=== PATIENT | male | born 1980 | race Caucasian/White ===

== ENCOUNTER 2016-05-23 13:02 | Emergency (ER) | payer SELFPAY ==
[2016-05-23] MEDS ORDERED: Sodium Chloride 0.9% 1,000 ML PRIMARY IV ONE (13:21)
[2016-05-23] MEDS ORDERED: NORMAL SALINE 10 ML SYRINGE FLUSH IVP PRN (13:21)
[2016-05-23] MEDS ORDERED: Metoclopramide Inj 10 MG/2 ML VIAL IVP ONE (13:21)
[2016-05-23] MEDS ORDERED: KETOROLAC 30 MG/1 ML VIAL IVP ONE (13:21)
[2016-05-23] MEDS ORDERED: diphenhydrAMINE 50 MG/1 ML VIAL IVP ONE (13:21)
[2016-05-23 13:30] LABS: BASOPHILS # (AUTO) 0.05 10*3/UL; BASOPHILS % (AUTO) 0.3 % (0-1); EOSINOPHILS % (AUTO) 1.4 % (0-8); HEMATOCRIT 44.9 % (42.0-52.0); IMM GRAN % (AUTO) 0.4 % (0-5); IMM GRAN# (AUTO) 0.07 10*3/UL; LYMPHOCYTES # (AUTO) 3.35 10*3/uL; LYMPHOCYTES % (AUTO) 21.1 % (10-50); MEAN CORPUSCULAR HEMOGLOBIN 29.3 PG (27-31); MEAN CORPUSCULAR HGB CONC 35.6 g/dL (33-37); MEAN PLATELET VOLUME 10.1 FL (7.4-12.2); MONOCYTES # (AUTO) 1.13 10*3/UL (0.3-0.8); MONOCYTES % (AUTO) 7.1 % (5-15); NEUTROPHILS # (AUTO) 11.06 10*3/UL; NEUTROPHILS % (AUTO) 69.7 % (50-80); RED BLOOD COUNT 5.47 10^6/uL (4.70-6.10); WHITE BLOOD COUNT 15.89 10^3/uL (4.8-10.8)
[2016-05-23 13:33] LABS: PLATELET MORPHOLOGY COMMENT NORMAL MORPHOLOGY (NORM)
[2016-05-23 13:39] LABS: ASPARTATE AMINO TRANSFERASE 35 IU/L (21-57); BILIRUBIN,TOTAL 0.5 mg/dL (0.3-1.2); BLOOD UREA NITROGEN 10 mg/dL (7-22); CALCIUM 9.5 mg/dL (8.7-10.7); CHLORIDE 108 meq/L (98-112); CREATININE 0.5 mg/dL (0.70-1.50); EST GLOMERULAR FILTRATION > 60 (>60 ml/min/1.73m(2)); GLUCOSE 101 mg/dL (78-110); POTASSIUM 4.4 meq/L (3.8-5.2); SODIUM 144 meq/L (135-145); TOTAL PROTEIN 8.2 g/dL (6.1-8.0)
[2016-05-23 13:47] VITALS: RESP 18
--- NOTE | 2016-05-23 14:16 | DI ---
CT HEAD SCAN WITHOUT IV CONTRAST, 05/23/2016 1:25 PM : Clinical History: Headache. Previous Exam: None at this facility. Scans are obtained from the foramen magnum to the vertex without IV contrast. The 4th, 3rd, and lateral ventricles are of normal size, shape, position, and contour. There are no abnormal areas of increased or decreased density. There is no intracranial hemorrhage. Bone window evaluation is normal. The paranasal sinuses are normal. READING: Normal non contrast CT head scan.
[2016-05-23 15:54] LABS: APPEARANCE, CSF CLEAR (CLEAR); COLOR, CSF COLORLESS (COLOR)
[2016-05-23 15:55] LABS: ADD CSF CULTURE YES
[2016-05-23 16:04] LABS: GLUCOSE, CSF 57 mg/dL (50.0-80.0); TOTAL PROTEIN, CSF 53 mg/dL (15.0-45.0)
--- NOTE | 2016-05-23 17:01 | PDOC ---
Headache HPI - General Chief Complaint: Headache Stated Complaint: MIGRAINE HEADACHE STARTING TODAY Date Seen by Provider: 05/23/16 Time Seen by Provider: 13:10 Source: POSITIVE: Patient Exam Limitations: POSITIVE: No limitations Nurse's Notes Reviewed & Considered: Yes - History of Present Illness Initial Comments: The patient is a 36-year-old male. He is brought to the emergency room by his . A shunt states that her approximately 3-4 hours [employer] DESIGN[employer] he was standing at work and developed a fairly abrupt onset of headache. His headache is located in the temporal areas bilaterally. He denies any history of recent head trauma. No associated nausea or vomiting. He does complain of photophobia and phonophobia. He states he has never had a headache this severe, although he does state that he did have one headache in the past which she states was diagnosed as a migraine headache. Patient states he has chronic foot pain due to previous fractures and also neuropathy. He states he does take Percocet on a daily basis for his foot pain, as well as chronic back pain, but he has not had any of this medication for 2 days since he states his [id number] inadvertently took his Percocet with her back to her home after a visit. History of hypertension for which she takes lisinopril/hydrochlorothiazide. No motor or sensory deficits. No incoordination or speech deficits. Body Location Affected: REPORTS: Head Timing: REPORTS: Abrupt Duration: 4-6 hours Severity: Severe Quality: REPORTS: "Pain", Throbbing, Tenderness (Scalp tenderness) Context: DENIES: CO Exposure, Tick Bite, Insect Bite, Recent Head Injury, Other Associated Symptoms: REPORTS: Sensitivity to Light. DENIES: Fever, Chills, Sweating, Problems with Vision, Visual Disturb Preceding, [place] Preceding, Typical of Prior Aura(s), Nausea, Vomiting, Neck Pain, Stiffness, Speech Problems, Weakness, Trouble Walking, Tingling, Numbness, Dizziness, Lightheadedness, Other Exacerbated by: REPORTS: Light, Noise Any Prior Injuries Related to Current Complaint?: No - Patient Home Medications Home Medications: Home Medications Ibuprofen [Advil Migraine] 200 mg PO PRN #30 04/14/12 Hydrocodone Bit/Acetaminophen [Hydrocodon-Acetaminophn 10-325] 1 each PO QID PRN #100 04/30/12 JPM - Lisinopril Tab 10 mg PO DAILY tab 07/04/14 Meloxicam 1 - 2 tab PO DAILY PRN #60 tab 02/20/15 - Patient Allergies Allergies/Adverse Reactions: Allergies Allergy/AdvReac Type Severity Reaction Status Date / Time Penicillins AdvReac Intermediate HEADACHE Verified 05/23/16 13:24 Past Medical History - heen HEENT History: Denies History Cardiovascular History: Hypertension Respiratory History: Other (please comment) Additional Respiratory History: smoker Gastrointestinal History: Denies History Genitourinary History: Denies History Endocrine History: Denies History Prosthesis or Implant: No Additional Musculoskeletal History: left foot fracture with ORIF; Rt foot fracture, LOW SPINAL COMPRESSION FX (UNSURE WHICH LEVEL), " MY PELVIS FROM MY SPINE 2X YEARS AGO". Neurological History: Migraines Blood Disorders: Denies History Psychiatric History: Other (please comment) Additional Psychiatric History: depressive symptoms after laid off from work History of Sexually Transmitted Diseases: No Cancer History: Denies History In Past Year Been Physically Harmed or Verbally Threatened: No History of MDRO: Unknown History of Other Communicable Diseases: No Tobacco Use: Current Every Day Smoker Alcohol Use: Rarely Substance Use Type: None Previous Surgical History: Yes Anesthesia Reactions: No Malignant Hyperthermia: No Significant Family History: No pertinent family hx Past Medical History Reviewed: Reviewed - No Changes ROS - Limitations ROS Limitations: No Limitations Constitution: REPORTS: Denies Symptoms Cardiovascular: REPORTS: Denies Cardiac Symptoms Respiratory: REPORTS: Denies Resp Symptoms Neurological: REPORTS: Headache Gastrointestinal: REPORTS: Denies GI Symptoms Endocrine: REPORTS: Denies Symptoms Musculoskeletal: REPORTS: Denies MS Symptoms Genitourinary: REPORTS: Denies Symptoms Eyes: REPORTS: Denies Symptoms ENT: REPORTS: Denies Symptoms Skin: REPORTS: Denies Skin Symptoms Lympathic: REPORTS: Denies Lympathic Symptoms Immunologic: POSITIVE: Denies Symptoms Psychiatric: POSITIVE: Denies Psych Symptoms Headache Exam - General Appearance General Appearance: POSITIVE: Alert, Cooperative, No Evidence of Trauma, Anxious , Moderate Distress - HEENT Head / Face: POSITIVE: Atraumatic, Normal Inspection, No Facial Swelling, Tenderness (Scalp is tender on firm palpation and compression) Eyes: POSITIVE: Inspection Normal, PERRL, EOM's Intact, Eyelids Uninjured, Conjunctivae Uninjured, No Nystagmus, No Globe Trauma, Sclera Normal, Normal Fundoscopic Exam, Ant. Chamber Nml Inspect., Posterior Segments Normal, No Papilledema Ears: POSITIVE: Ears Normal Inspection, TM Normal Inspection, Auricle Normal, External Canal Normal Nose: POSITIVE: Inspection Normal, No Apparent Trauma, Nares Normal, No CSF Leak Oropharynx: POSITIVE: External Inspection Nml, Pharynx Inspect. Nml, Airway Intact, Voice Normal, Moist Mucous Membranes, No Oral Injury, Lips Normal, Gums Normal, No Drooling, No Thrush, Normal Gag Reflex Dental: POSITIVE: No Dental Injury - Pupil Size Pupil Size: 4 mm: Bilateral (PERRLA) - Neck Neck: POSITIVE: Normal Inspection, Supple - Respiratory / CVS Respiratory / CVS: POSITIVE: Chest Non-Tender, No Respiratory Distress, Heart Sounds Normal, Regular Rate/Rhythm, Breath Sounds Normal Peripheral Pulses: Radial (R): 2+, Radial (L): 2+ - Abdomen Abdomen: Soft: (All Quadrants), Normal Bowel Sounds: (All Quadrants), Denies Tenderness: (All Quadrants), No Splenomegaly: (All Quadrants), No Hepatomegaly: (All Quadrants), No Guarding: (All Quadrants), No Rebound: (All Quadrants), No Palpable Pulse: (All Quadrants), No Palpabale Mass: (All Quadrants), No Distention: (All Quadrants), No Rigidity: (All Quadrants) - Skin Skin: POSITIVE: Intact, Normal Palpation - Extremities Extremity: Non-Tender: (All Extremities), Normal ROM: (All Extremities), Normal Inspection: (All Extremities) - Neuro / Psych Higher Functions: POSITIVE: Alert, Oriented x3, Normal Speech, Mood Appropriate , Affect Appropriate Cranial Nerves: POSITIVE: Normal As Tested, No Evidence of Acute CVA Cerebellar: POSITIVE: Normal As Tested Sensorimotor: POSITIVE: No Motor Deficits, No Sensory Deficits, Reflexes Normal Images - Head Head: 1 - Area of headache 2 - Area of scalp tenderness and headache Procedure - Lumbar Puncture Risks, Benefits, & Alternatives Discussed: Yes Time of Treatment: 14:45 Lumbar Puncture Technique: POSITIVE: Lying, Sterile Technique, L3-4 Lumbar Puncture Color: POSITIVE: Colorless Lumbar Puncture Lab Results Reviewed: Yes Procedure Note:: After informed consent, lumbar puncture was performed by Dr. Jerome Tillman under fluoroscopic guidance in radiology. Please refer to his procedure note. Headache Progress - Results Reviewed by me Xrays/CTs/US Reviewed by me: Yes Discussed with Radiologist: Yes Radiology Findings: CT scan of head normal Lab Results Reviewed: Yes (spinal fluid normal with no abnormal cells or cell count) Lab Results:: Laboratory Results 05/23/16 05/23/16 Range/Units 13:23 15:22 WBC 15.89 H (4.8-10.8) 10^3/uL RBC 5.47 (4.70-6.10) 10^6/uL Hgb 16.0 (14.0-18.0) g/dL Hct 44.9 (42.0-52.0) % MCV 82.1 (80-90) FL MCH 29.3 (27-31) PG MCHC 35.6 (33-37) g/dL RDW Std Deviation 38.6 L (39-50) fL RDW Coeff of Joel 13.0 (11.5-14.5) % Plt Count 279 (140-350) 10*3/uL MPV 10.1 (7.4-12.2) FL Immature Gran % (Auto) 0.4 (0-5) % Neut % (Auto) 69.7 (50-80) % Lymph % (Auto) 21.1 (10-50) % [place] % (Auto) 7.1 (5-15) % Eos % (Auto) 1.4 (0-8) % Baso % (Auto) 0.3 (0-1) % Immature Gran # (Auto) 0.07 10*3/UL Neut # (Auto) 11.06 10*3/UL Lymph # (Auto) 3.35 10*3/uL [place] # (Auto) 1.13 H (0.3-0.8) 10*3/UL Eos # (Auto) 0.23 10*3/UL Baso # (Auto) 0.05 10*3/UL WBC Morphology Comment Normal morphology (NORM) Plt Morphology Comment Normal morphology (NORM) RBC Morph Comment Normal morphology (NORM) Sodium 144 (135-145) meq/L Potassium 4.4 (3.8-5.2) meq/L Chloride 108 (98-112) meq/L Carbon Dioxide 25 (23-33) meq/L Anion Gap 11 (5-20) BUN 10 (7-22) mg/dL Creatinine 0.5 L (0.70-1.50) mg/dL Estimated GFR > 60 (>60 ml/min/1.73m(2)) BUN/Creatinine Ratio 20.00 (6-20) Glucose 101 (78-110) mg/dL Calculated Osmolality 296.0 H (267-292) mOsm/kg Calcium 9.5 (8.7-10.7) mg/dL Total Bilirubin 0.5 (0.3-1.2) mg/dL AST 35 (21-57) IU/L ALT 69 (21-72) IU/L Alkaline Phosphatase 74 (38-126) IU/L Total Protein 8.2 H (6.1-8.0) g/dL Albumin 4.4 (3.5-4.8) g/dL Globulin 3.8 (2.50-4.10) g/dL Albumin/Globulin Ratio 1.10 L (1.3-2.0) mg/g CSF Volume 8ml ML CSF Appearance Clear (CLEAR) CSF Color Colorless (COLOR) CSF WBC 0.004 (0-0.010) 10^3/uL CSF RBC 0.002 (0-0.010) 10^6/uL CSF Glucose 57 (50.0-80.0) mg/dL CSF Total Protein 53 H (15.0-45.0) mg/dL - Patient's Progress Pain Medication Addressed: POSITIVE: Yes (Patient was given a liter of normal saline IV along with 10 mg of Reglan, 50 mg of diphenhydramine and 30 mg of Toradol IV. Patient had fair relief of his headache afterward.) School/Work Release Addressed: POSITIVE: Yes (Work excuse for today given) Re-Examine Time:: 15:45 Re-Examine Comment: Patient's headache is markedly improved on discharge. Laboratory results and CT scan results discussed with patient and his . will drive patient home. Status: POSITIVE: Improved, Re-Examined, Pain Relieved - Consult Counseled: POSITIVE: Patient, Family, RE: Lab Results, RE: Radiology Results, RE : DX, RE: Need for F/U Patient Care Time - Estimated PCT Patient Care Time (In Minutes): 62 Vital Signs - Recent Vital Signs Vital Signs: Vital Signs (Last 8 hours) Pulse Resp BP Pulse Ox 05/23/16 13:02 96 18 138/111 98 - VS Reviewed Vital Signs Reviewed: Yes Discharge Clinical Impression: Headache, Migraine Discharge Disposition: Discharged to Home Condition: Stable Patient Instructions Given at Discharge: Migraine Headache (ED) Additional Instructions: The CT scan of your head and your spinal tap were both normal. I believe he will probably having a migraine headache and probably also a muscle contraction headache. Rest. I would avoid narcotics as sometimes headaches can occur in people who stop taking narcotics after they have been on them for a long time, as is apparently your case. Advil or Tylenol for discomfort. Rest for the rest of the day. Follow-up with your primary care provider. Return here anytime if condition worsens in any way. Follow Up With: ZURI ASHRAF [Primary Care Provider] - (Instructions as above. Follow -up with your primary care provider. Return here anytime if condition worsens.)
--- NOTE | 2016-05-24 13:04 | DI ---
XR FLUORO GUIDE/LOCAL/NDL/CATH,05/23/2016 2:55 PM: Clinical History: Headache. Rule out subarachnoid hemorrhage. Previous Exam: None at this facility. Procedure: Risks, benefits and alternatives were explained to the patient and informed written consen t obtained. The patient was placed prone on the fluoroscopy table and the lower back prepped and draped in usual sterile fashion. Under fluoroscopic guidance, a 22-gauge spinal needle was advanced into the thecal sac and samples of cervical spinal fluid obtained. The first sample was completely clear. The second through fourth demonstrated some blood grossly within the fluid. The patient tolerated the procedure well and was sent back to the emergency room in good condition. Findings: Real-time fluoroscopy demonstrated a spinal needle in good position at the L4/5 level. There is also a single static image demonstrating the needle in good position. Impression: Successful fluoroscopically guided lumbar puncture.
== END 2016-05-23 16:19 | disposition home or self-care (01) ==
LOC: ER 13:02
DX: G43.909 Migraine, unspecified, not intractable, without status migrainosus (principal); H53.143 Visual discomfort, bilateral
CPT/HCPCS: 70450; 77003; 80053; 82945; 84157; 85025; 87205; 89050; 96361; 96374; 96375; 99283 ×2; J1200; J1885; J2765; J7030

== ENCOUNTER 2017-06-07 20:10 | Inpatient (IN) ==
[2017-06-07] MEDS: NITROGLYCERIN 0.4 MG SL TAB (BOTTLE OF 3) SL ONE ×2 (20:10→20:15)
[2017-06-07] MEDS ORDERED: Sodium Chloride 0.9% 1,000 ML PRIMARY IV ONE (20:16)
[2017-06-07] MEDS ORDERED: MORPHINE SULFATE 4 MG/1 ML IVP ONE (20:16)
[2017-06-07] MEDS ORDERED: ONDANSETRON 4 MG/2 ML VIAL IVP ONE (20:16)
--- NOTE | 2017-06-07 20:21 | PDOC ---
Chest Pain HPI - General Chief Complaint: Chest Pain Stated Complaint: CHEST PAIN Date Seen by Provider: 06/07/17 Time Seen by Provider: 20:15 Source: Patient Exam Limitations: POSITIVE: No limitations Treatment Prior to Arrival: REPORTS: None Nurse's Notes Reviewed & Considered: Yes - History of Present Illness Initial Comments: This is a 37-year-old male who has sudden onset of chest pressure. Patient was at home sitting on the couch watching TV when he developed elevated heart rate and subsequent chest pressure. Symptoms began approximately 40 minutes prior to presentation here in the emergency room. He denies any radiation of the pain and no shortness of breath. He denies headache, no sore throat, no cough, no nausea vomiting or diarrhea, no diaphoresis, no rashes, no hematuria or dysuria. Patient is presently laid off from his job which is working for the [employer]. He is a smoker states that he smokes a half pack to a pack a day, however, his fingers or significantly nicotine stained and I suspect his level of tobacco ingestion is significantly higher. He states he has had an EKG in the past that showed an old myocardial infarction but is never seen a cardiology nurse practitioner. Patient takes medication for high blood pressure, and he relates that his blood pressure is labile. Body Location Affected: REPORTS: Chest Timing: REPORTS: Abrupt Duration: 1 hour Severity: Moderate Persistent/Worse since (date): 06/07/17 Persistent/Worse since (time): 19:30 Context: REPORTS: Rest Quality: REPORTS: Pressure Radiation: REPORTS: None Associated Symptoms: REPORTS: Palpitations Modifying Factors: improves with: None Reported Similar Symptoms Previously: No Recently seen/treated/hospitalized: No Any Prior Injuries Related to Current Complaint?: No - Patient Home Medications Home Medications: Home Medications Ibuprofen [Advil Migraine] 200 mg PO PRN #30 04/14/12 JPM - Lisinopril Tab 10 mg PO DAILY tab 07/04/14 Meloxicam 1 - 2 tab PO DAILY PRN #60 tab 02/20/15 oxyCODONE IR Tab [OxyIR Tab] 15 mg PO Q4H PRN 06/07/17 - Patient Allergies Allergies/Adverse Reactions: Allergies 3 Allergy/AdvReac Type Severity Reaction Status Date / Time Penicillins AdvReac Intermediate HEADACHE Verified 06/08/17 06:42 Past Medical History - heen HEENT History: Denies History Cardiovascular History: Hypertension Respiratory History: Other (please comment) Additional Respiratory History: smoker Gastrointestinal History: Denies History Genitourinary History: Denies History Endocrine History: Denies History Prosthesis or Implant: No Additional Musculoskeletal History: left foot fracture with ORIF; Rt foot fracture, LOW SPINAL COMPRESSION FX (UNSURE WHICH LEVEL), " MY PELVIS FROM MY SPINE 2X YEARS AGO". Neurological History: Migraines Blood Disorders: Denies History Psychiatric History: Other (please comment) Additional Psychiatric History: depressive symptoms after laid off from work History of Sexually Transmitted Diseases: No Cancer History: Denies History History of MDRO: Unknown History of Other Communicable Diseases: No Alcohol Use: Rarely In the Past 12 Months, Have Used or Abuse Any Substance: None Previous Surgical History: Yes Anesthesia Reactions: No Malignant Hyperthermia: No Significant Family History: No pertinent family hx ROS Constitution: REPORTS: Denies Symptoms Cardiovascular: REPORTS: Chest Pain, Blood Pressure Problem Respiratory: REPORTS: Denies Resp Symptoms Neurological: REPORTS: Denies Neuro Symptoms Gastrointestinal: REPORTS: Denies GI Symptoms Endocrine: REPORTS: Denies Symptoms Musculoskeletal: REPORTS: Denies MS Symptoms Genitourinary: REPORTS: Denies Symptoms Eyes: REPORTS: Denies Symptoms ENT: REPORTS: Denies Symptoms Skin: REPORTS: Denies Skin Symptoms Lympathic: REPORTS: Denies Lympathic Symptoms Immunologic: POSITIVE: Denies Symptoms Psychiatric: POSITIVE: Denies Psych Symptoms Chest Pain PE - General Appearance General Appearance: REPORTS: Alert, Cooperative, No Evidence of Trauma, Mild Distress - HEENT HEENT: POSITIVE: Head Inspection Nml, Eyes Inspection Nml, Ears Inspection Nml, Nose Inspection Nml, Oral/Dental Inspect. Nml, Pharynx Inspect. Nml, PERRL, EOMI - Neck Neck: REPORTS: Normal Inspection - Respiratory Respiratory: REPORTS: No Respiratory Distress, Breath Sounds Normal, Chest Non- Tender - Cardiovascular Cardiovascular: REPORTS: Regular Rate and Rhythm, Heart Sounds Normal, Strong Pulses, No Murmur, No Gallop, No Friction Rub, No JVD Peripheral Pulses: Radial (R): 4+ - Abdomen Abdomen: Soft: (All Quadrants), Normal Bowel Sounds: (All Quadrants), Denies Tenderness: (All Quadrants), No Splenomegaly: (All Quadrants), No Hepatomegaly: (All Quadrants), No Guarding: (All Quadrants), No Rebound: (All Quadrants), No Palpable Pulse: (All Quadrants), No Palpabale Mass: (All Quadrants), No Distention: (All Quadrants), No Rigidity: (All Quadrants) - Skin Skin: REPORTS: Intact, Normal For Race, Warm, Dry, No Rash - Extremities Extremity: Non-Tender: (All Extremities), Normal ROM: (All Extremities), Normal Inspection: (All Extremities), Pelvis Stable: (All Extremities) - Neurological / Psychological Neurological: POSITIVE: Affect Apporpriate, Oriented X3, Motor Normal, Sensation Normal Chest Pain Progress - Results Reviewed by me Xrays/CTs/US Reviewed by me: Yes Discussed with Radiologist: Yes Lab Results Reviewed by Me: Yes CBC and BMP: 06/07/17 20:10 06/08/17 05:30 EKG Interpreted/Reviewed By Me:: Yes (NSR) EKG Interpretation:: POSITIVE: Normal Sinus Rhythm - Patient's Progress Status: POSITIVE: Improved MDM / ED Course: Patient was evaluated, an IV started, blood drawn and sent to the lab for studies, EKG and radiographic examinations were obtained. Findings: CBC shows white count of 18.2. Comprehensive metabolic panel is unremarkable. Troponin, CK-MB, d-dimer are negative. Chest x-ray, per my interpretation shows cardiac enlargement without congestive heart failure. CT scan shows no acute cardiopulmonary decompensation. Assessment: Chest pain Plan: Admission, IV antibiotics, repeat serial cardiac enzymes and EKGs. - Consult Consulting MD will see pt:: POSITIVE: [place] Admit Counseled: POSITIVE: Patient, RE: Lab Results, RE: Radiology Results, RE: DX Patient Care Time - Estimated PCT Patient Care Time (In Minutes): 60 Vital Signs - Recent Vital Signs Vital Signs: Vital Signs (Last 8 hours) Temp Pulse Pulse Resp BP Pulse Ox 06/08/17 06:49 97.5 F 87 19 155/66 92 06/08/17 05:00 96.8 F 90 18 172/88 93 06/08/17 04:17 94 06/08/17 03:00 90 - VS Reviewed Vital Signs Reviewed: Yes Discharge Clinical Impression: Chest pain Discharge Disposition: Admit to Observation Condition: Stable
[2017-06-07 20:28] LABS: BASOPHILS # (AUTO) 0.07 10*3/UL; BASOPHILS % (AUTO) 0.4 % (0-1); EOSINOPHILS # (AUTO) 0.52 10*3/UL; EOSINOPHILS % (AUTO) 2.9 % (0-8); Hematocrit [HCT] 48.1 % (42.0-52.0); Hemoglobin [HGB] 16.4 g/dL (14.0-18.0); LYMPHOCYTES # (AUTO) 4.78 10*3/uL; MEAN CORPUSCULAR HEMOGLOBIN 29.1 PG (27-31); MEAN CORPUSCULAR HGB CONC 34.1 g/dL (33-37); MEAN CORPUSCULAR VOLUME 85.3 FL (80-90); MEAN PLATELET VOLUME 10.5 FL (7.4-12.2); MONOCYTES # (AUTO) 1.41 10*3/UL (0.3-0.8); MONOCYTES % (AUTO) 7.8 % (5-15); NEUTROPHILS # (AUTO) 11.35 10*3/UL; NEUTROPHILS % (AUTO) 62.3 % (50-80); RED BLOOD COUNT 5.64 10^6/uL (4.70-6.10)
[2017-06-07 20:32] LABS: PLATELET MORPHOLOGY COMMENT NORMAL MORPHOLOGY (NORM); RBC MORPHOLOGY COMMENT NORMAL MORPHOLOGY (NORM); WBC MORPHOLOGY COMMENT NORMAL MORPHOLOGY (NORM)
[2017-06-07] MEDS ORDERED: ACETAMINOPHEN 325 MG TABLET PO ONE (20:32)
[2017-06-07 20:41] LABS: BLOOD UREA NITROGEN 15 mg/dL (7-22); BUN/CREATININE RATIO 21.42 (6-20); SERUM ALBUMIN 4.5 g/dL (3.5-4.8)
[2017-06-07] MEDS ORDERED: AZITHROMYCIN 250 MG TABLET PO ONE (21:20)
[2017-06-07] MEDS ORDERED: DEXAMETHASONE PF 10 MG/1 ML VIAL IVP ONE (21:20)
[2017-06-07] MEDS ORDERED: KETOROLAC 15 MG/1 ML VIAL IVP ONE (21:49)
[2017-06-07] MEDS ORDERED: cefTRIAXone Inj 2 GM in Sodium Chloride 0.9% 100 ML IV ONE (22:01)
[2017-06-07] MEDS ORDERED: NICOTINE 21 MG /DAY PATCH TRANSDERM ONE (22:04)
--- NOTE | 2017-06-07 22:20 | DI ---
EXAM: XR Chest, 1 View CLINICAL HISTORY: Chest pain TECHNIQUE: Frontal view of the chest. COMPARISON: No relevant prior studies available. FINDINGS: Lungs: No evidence for pulmonary consolidation. No effusion or pneumothorax identified. Left basilar atelectasis. Pleural space: See above. Heart: Cardiac silhouette is mildly enlarged. Central pulmonary venous prominence and bronchovascular crowding. These findings likely accentuated by low lung volume. Mediastinum: Unremarkable. Bones/joints: Unremarkable. IMPRESSION: Possible mild cardiomegaly and central venous prominence, likely accentuated by low lung volume.
[2017-06-07] MEDS ORDERED: LIDOCAINE W/ SODIUM BICARB 0.5 ML SYR SUBD PRN (23:14)
[2017-06-07] MEDS ORDERED: NORMAL SALINE 10 ML SYRINGE FLUSH IVP PRN (23:14)
[2017-06-07] MEDS ORDERED: ASPIRIN 81 MG (BABY) CHEWABLE TABLET PO ONE (23:14)
[2017-06-07] MEDS ORDERED: CALCIUM CARBONATE 500 MG (TUMS) CHEWABLE TABLET PO PRN (23:14)
[2017-06-07] MEDS ORDERED: KETOROLAC 15 MG/1 ML VIAL IVP PRN (23:17)
--- NOTE | 2017-06-07 23:23 | DI ---
EXAM: CT Angiography Chest Without and With Intravenous Contrast CLINICAL HISTORY: Chest pain TECHNIQUE: Axial computed tomographic angiography images of the chest without and with intravenous contrast using pulmonary embolism protocol. MIP reconstructed images were created and reviewed. Coronal and sagittal reformatted images were created and reviewed. COMPARISON: No relevant prior studies available. FINDINGS: Pulmonary arteries: Exam is limited due to suboptimal pulmonary arterial contrast at time of imaging. No evidence for central or occlusive pulmonary embolus. Multiple foci of hypodensity within the segmental and subsegmental pulmonary trunk branches likely related to artifact. Aorta: No acute findings regarding the thoracic aorta. No thoracic aortic aneurysm. Lungs: 5 mm subpleural right upper lobe lung nodule. Calcified granuloma within the left upper lobe. 3 mm opacity within the left upper lobe on image 39. Small foci of subpleural scarring and atelectasis noted bilaterally. No evidence for consolidation. No visualized effusion. Azygos lobe incidentally noted. Pleural space: Unremarkable. No significant effusion. No pneumothorax. Heart: Unremarkable. No cardiomegaly. No significant pericardial effusion. No evidence of RV dysfunction. Bones/joints: No acute fracture. No dislocation. Mild degenerative disc changes. Soft tissues: Unremarkable. Lymph nodes: Unremarkable. No enlarged lymph nodes. Liver: Hepatic steatosis. IMPRESSION: 1. No evidence for central or occlusive pulmonary embolus. Limited contrast bolus and artifact limits evaluation of the segmental and subsegmental branches. 2. Calcified granuloma in the left upper lobe. Noncalcified small nodularities in the right upper lobe and left upper lobe may also be related to inflammation or scarring though nonspecific. If there is risk for malignancy, consider twelve-month follow-up imaging. 3. Hepatic steatosis.
[2017-06-08] MEDS ORDERED: LISINOPRIL 20 MG TABLET PO ONE (00:30)
[2017-06-08] MEDS ORDERED: Metoprolol TARTRATE Tab 25 MG TAB PO ONE (00:31)
[2017-06-08] MEDS ORDERED: LORazepam 2 MG/1 ML VIAL IM ONE (00:31)
[2017-06-08] MEDS: Sodium Chloride 0.9% 1,000 ML PRIMARY IV SCH ×2 (01:02→10:13)
[2017-06-08] MEDS: oxyCODONE IR Tab 15 MG TAB PO PRN ×3 (01:27→09:00)
[2017-06-08 06:12] LABS: BLOOD UREA NITROGEN 18 mg/dL (7-22); BUN/CREATININE RATIO 25.71 (6-20); CHOL/HDL RATIO 4.21 RATIO (0-4.0); SERUM ALBUMIN 4.1 g/dL (3.5-4.8); SERUM CHOLESTEROL 156 mg/dL (120-200)
[2017-06-08] MEDS ORDERED: LISINOPRIL 10 MG TABLET PO SCH (09:00)
[2017-06-08 11:13] LABS: AMPHETAMINE SCREEN NEGATIVE (NEG); CANNABINOID SCREEN,URINE NEGATIVE (NEG); COCAINE SCREEN NEGATIVE (NEG); METHADONE URINE SCREEN NEGATIVE (NEG); METHAMPHETAMINES SCREEN,URINE NEGATIVE (NEG); OPIATE SCREEN,URINE NEGATIVE (NEG); URINE SAMPLE TYPE CLEAN CATCH URINE; URINE SPECIFIC GRAVITY - MAN 1.027
[2017-06-08 11:19] VITALS: BP 166/79; RESP 18; TEMP 97.6; O2SAT 94
--- NOTE | 2017-06-08 11:31 | EKG ---
[address] [address] Measurements Intervals [place] Rate: 106 P: 47 FL: 122 QRS: 42 QRSD: 105 T: 33 QT: 321 QTc: 383 Interpretive Statements SINUS TACHYCARDIA NONSPECIFIC T-WAVE ABNORMALITY ABNORMAL RHYTHM ECG INTERPRETATION BASED ON A DEFAULT AGE OF 40 YEARS No previous ECG available for comparison Electronically Signed On 06-09-17 09:49:59 MST by Lul Borden MD [email or web address]
[2017-06-08 11:42] LABS: HEMOGLOBIN A1C 5.75 % (4.2-6.0)
--- NOTE | 2017-06-08 12:05 | PDOC ---
HPI - History of Present Illness Date of Service: 06/08/17 Time of Service: 11:30 Chief Complaint: Chest pain History of Present Illness: This is a 37-year-old male that came in with a complaint of chest pain. He states that it was in the lower substernal region on the left side, and felt like a squeezing. He stated it felt like someone had reached in and grabbed his heart and squeezed it. He states that the pain stretched a little laterally. He denied any shortness of breath with the pain. He denied any nausea or vomiting with the pain. He states that he does get heartburn but he states this does not feel like heartburn to him. He denied any diaphoresis. He states that the pain started about an hour after eating last night. He stated he did not want to come to the hospital but his and his children were concerned about the chest pain. He states he has a positive family history of heart disease apparently with episodes of heart attacks in his uncles on his mother's side. He has hypertension and he smokes tobacco. He does not know about cholesterol status and does not have diabetes to his knowledge. Thus far, heart enzymes have been negative, EKG is negative for any acute signs of coronary artery disease, and a CT scan of the chest was negative for pulmonary emboli. He states that he had a prior heart attack, and apparently this was diagnosed on an old EKG finding. He states that he was on an EKG for about an hour, and that these results were sent to a plywood stock grader although he never visited a plywood stock grader formally, he also has never had a heart catheterization. He does not recall any stress testing. Past Medical History Medical History: 1. Patient states that he had a heart attack in the past. 2. Chronic foot pain from a prior surgery in which he thinks the screws are misplaced.? Chronic hardware pain. According to his , the patient is in the process of trying to really work this up as they just got placed on title [address] and he had lost his insurance prior to these workups being completed. 3. Tobacco abuse. 4. Fatty liver disease, which patient attributed to long-term use of Vicodin. 5. 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 Foot surgery Pertinent Family History: Significant for coronary artery disease per the patient with multiple heart attacks and uncles on his mother's side of the family. Past Social History: Patient is and is been with his and significant other of over 20 years. Has 3 biologic children with her and are described as healthy. He smokes tobacco, states he cannot tolerate alcohol due to heartburn symptoms. 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 Tobacco Use: Current Every Day Smoker Do you dip or chew tobacco: No In the Past 12 Months, Have Used or Abuse Any of the Following Substance: None Alcohol Use: None Medication / Allergies Home Medications: Home Medications Medication Instructions Recorded Confirmed Type Ibuprofen [Advil Migraine] 200 mg PO PRN #30 04/14/12 06/07/17 History JPM - Lisinopril Tab 10 mg PO DAILY tab 07/04/14 06/07/17 History Meloxicam 1 - 2 tab PO DAILY PRN #60 tab 02/20/15 06/07/17 History oxyCODONE IR Tab [OxyIR Tab] 15 mg PO Q4H PRN 06/07/17 06/07/17 History Allergies/Adverse Reactions: Allergies 3 Allergy/AdvReac Type Severity Reaction Status Date / Time Penicillins AdvReac Intermediate HEADACHE Verified 06/08/17 06:42 Review of Systems - Constitutional Constitutional: REPORTS: Other (Denies fevers or cough) - Respiratory Respiratory: REPORTS: Negative System Review - Cardiovascular Cardiovascular: REPORTS: Negative System Review - Gastrointestinal Gastrointestinal / Abdominal: REPORTS: Negative System Review - Genitourinary Genitourinary: REPORTS: Negative System Review - Musculoskeletal Musculoskeletal: REPORTS: Other (In addition to his chronic hip pain and foot pain, he states that he has 2 herniated disks) - Neurological Neurologic: REPORTS: Negative System Review Exam - Vitals Vital Signs: Vital Signs Temperature 97.6 F Temperature Source Temporal Artery Scan Pulse Rate [Telemetry] 84 Pulse Rate [Pulse Oximeter] 99 Pulse Rate 102 Respiratory Rate 18 Blood Pressure [Right Arm] 166/79 Blood Pressure 153/92 Pulse Ox 94 Oxygen Delivery Method Room Air Height 6 ft 2 in Weight 300 lb - General General Appearance: No Acute Distress, Cooperative Additional General Exam Details: Patient was somewhat belligerent, anxious and agitated sitting in the bed, and cursed at me during the interview. - Head Head Exam: Normal Inspection, Normocephalic, Atraumatic - Eye Eye Exam: POSITIVE: No Scleral Icterus - ENT ENT Exam: POSITIVE: Mucous Membranes Moist - Neck Neck Exam: Normal Inspection, No Tenderness, No Lymphadenopathy, No Thyromegaly - Respiratory Respiratory Exam: POSITIVE: Clear to Auscultation - Bilaterally, Breathing Non Labored - Cardiovascular Cardiovascular Exam: POSITIVE: RRR, No Murmur, No Clicks, No Gallops, No Rubs, No JVD Additional Cardiovascular Details: I palpated the patient's chest, on the lower portion of the chest for his pain was, he stated it felt somewhat like a squeezing that he had. He states it wasn 't a true reproducible pain similar to what he came in with last night. - GI/Abdominal GI/Abdominal Exam: POSITIVE: Normal Bowel Sounds, Non Tender, Non Distended, Soft - Rectal Rectal Exam: POSITIVE: Deferred - External Exam: POSITIVE: Deferred Exam: POSITIVE: Deferred - Extremities Extremities Exam: POSITIVE: No Clubbing Present, No Edema Present, No Cyanosis Present - Back Back Exam: POSITIVE: Normal Inspection, No CVA Tenderness - Neurological Neurological Exam: POSITIVE: Alert, Oriented x 3, No Facial Droop, Speech Intact / Clear, Moves All Extremities Equally - Psychiatric Psychiatric Exam: POSITIVE: Anxious, Agitated Results - Labs CBC and BMP: 06/07/17 20:10 06/08/17 05:30 Additional Lab Results: Laboratory Results 06/07/17 06/07/17 06/07/17 Range/Units 20:10 20:10 20:10 WBC 18.19 H (4.8-10.8) 10^3/uL RBC 5.64 (4.70-6.10) 10^6/uL Hgb 16.4 (14.0-18.0) g/dL Hct 48.1 (42.0-52.0) % MCV 85.3 (80-90) FL MCH 29.1 (27-31) PG MCHC 34.1 (33-37) g/dL RDW Std Deviation 42.5 (39-50) fL RDW Coeff of Joel 13.8 (11.5-14.5) % Plt Count 285 (140-350) 10*3/uL MPV 10.5 (7.4-12.2) FL Immature Gran % (Auto) 0.3 (0-5) % Neut % (Auto) 62.3 (50-80) % Lymph % (Auto) 26.3 (10-50) % [place] % (Auto) 7.8 (5-15) % Eos % (Auto) 2.9 (0-8) % Baso % (Auto) 0.4 (0-1) % Immature Gran # (Auto) 0.06 10*3/UL Neut # (Auto) 11.35 10*3/UL Lymph # (Auto) 4.78 10*3/uL [place] # (Auto) 1.41 H (0.3-0.8) 10*3/UL Eos # (Auto) 0.52 10*3/UL Baso # (Auto) 0.07 10*3/UL WBC Morphology Comment Normal morphology (NORM) Plt Morphology Comment Normal morphology (NORM) RBC Morph Comment Normal morphology (NORM) PT (9.7-11.4) secs INR (0.00-5.90) N/A D-Dimer (0.00-0.59) mg/L Sodium 146 H (135-145) meq/L Potassium 4.4 (3.8-5.2) meq/L Chloride 107 (98-112) meq/L Carbon Dioxide 25 (23-33) meq/L Anion Gap 14 (5-20) BUN 15 (7-22) mg/dL Creatinine 0.7 (0.70-1.50) mg/dL Estimated GFR > 60 (>60 ml/min/1.73m(2)) BUN/Creatinine Ratio 21.42 H (6-20) Glucose 90 (78-110) mg/dL Mean Blood Glucose mg/dL Hemoglobin A1c (4.2-6.0) % Calculated Osmolality 302.0 H (267-292) mOsm/kg Calcium 9.6 (8.7-10.7) mg/dL Magnesium 1.9 (1.6-2.4) mg/dL Total Bilirubin 0.4 (0.3-1.2) mg/dL AST 41 (21-57) IU/L ALT 76 H (21-72) IU/L Alkaline Phosphatase 71 (38-126) IU/L CK-MB (CK-2) 0.26 (0.00-5.00) NG/ML Troponin I < 0.012 (< 0.040) ng/mL C-Reactive Protein 1.8 H (0.0-0.9) mg/dL NT-Pro-B Natriuret Pep 11.1 (0-125) PG/ML Total Protein 8.1 H (6.1-8.0) g/dL Albumin 4.5 (3.5-4.8) g/dL Globulin 3.6 (2.50-4.10) g/dL Albumin/Globulin Ratio 1.20 L (1.3-2.0) mg/g Triglycerides (44-200) mg/dL Cholesterol (120-200) mg/dL LDL Cholesterol, Calc mg/dL VLDL Cholesterol (0-40) mg/dL HDL Cholesterol (40-150) mg/dL Cholesterol/HDL Ratio (0-4.0) RATIO TSH (0.2700-4.2000) uIU/mL Ur Collection Type U Specif Grav (Refrac) Urine Opiates Screen (NEG) Ur Buprenorphine (NEG) Ur Oxycodone Screen (NEG) Urine Methadone Screen (NEG) Ur Propoxyphene Screen (NEG) Barbiturate Screen (NEG) U Tricyclic Antidepress (NEG) Phencyclidine Screen (NEG) Amphetamines Screen (NEG) U Methamphetamines Scrn (NEG) Benzodiazepines Screen (NEG) Cocaine Screen (NEG) U Marijuana (THC) Screen (NEG) 06/07/17 06/07/17 06/07/17 Range/Units 20:10 20:10 20:16 WBC (4.8-10.8) 10^3/uL RBC (4.70-6.10) 10^6/uL Hgb (14.0-18.0) g/dL Hct (42.0-52.0) % MCV (80-90) FL MCH (27-31) PG MCHC (33-37) g/dL RDW Std Deviation (39-50) fL RDW Coeff of Joel (11.5-14.5) % Plt Count (140-350) 10*3/uL MPV (7.4-12.2) FL Immature Gran % (Auto) (0-5) % Neut % (Auto) (50-80) % Lymph % (Auto) (10-50) % [place] % (Auto) (5-15) % Eos % (Auto) (0-8) % Baso % (Auto) (0-1) % Immature Gran # (Auto) 10*3/UL Neut # (Auto) 10*3/UL Lymph # (Auto) 10*3/uL [place] # (Auto) (0.3-0.8) 10*3/UL Eos # (Auto) 10*3/UL Baso # (Auto) 10*3/UL WBC Morphology Comment (NORM) Plt Morphology Comment (NORM) RBC Morph Comment (NORM) PT 10.0 (9.7-11.4) secs INR 0.94 (0.00-5.90) N/A D-Dimer 0.33 (0.00-0.59) mg/L Sodium (135-145) meq/L Potassium (3.8-5.2) meq/L Chloride (98-112) meq/L Carbon Dioxide (23-33) meq/L Anion Gap (5-20) BUN (7-22) mg/dL Creatinine (0.70-1.50) mg/dL Estimated GFR (>60 ml/min/1.73m(2)) BUN/Creatinine Ratio (6-20) Glucose (78-110) mg/dL Mean Blood Glucose mg/dL Hemoglobin A1c (4.2-6.0) % Calculated Osmolality (267-292) mOsm/kg Calcium (8.7-10.7) mg/dL Magnesium (1.6-2.4) mg/dL Total Bilirubin (0.3-1.2) mg/dL AST (21-57) IU/L ALT (21-72) IU/L Alkaline Phosphatase (38-126) IU/L CK-MB (CK-2) (0.00-5.00) NG/ML Troponin I (< 0.040) ng/mL C-Reactive Protein (0.0-0.9) mg/dL NT-Pro-B Natriuret Pep (0-125) PG/ML Total Protein (6.1-8.0) g/dL Albumin (3.5-4.8) g/dL Globulin (2.50-4.10) g/dL Albumin/Globulin Ratio (1.3-2.0) mg/g Triglycerides (44-200) mg/dL Cholesterol (120-200) mg/dL LDL Cholesterol, Calc mg/dL VLDL Cholesterol (0-40) mg/dL HDL Cholesterol (40-150) mg/dL Cholesterol/HDL Ratio (0-4.0) RATIO TSH 2.29 (0.2700-4.2000) uIU/mL Ur Collection Type U Specif Grav (Refrac) Urine Opiates Screen (NEG) Ur Buprenorphine (NEG) Ur Oxycodone Screen (NEG) Urine Methadone Screen (NEG) Ur Propoxyphene Screen (NEG) Barbiturate Screen (NEG) U Tricyclic Antidepress (NEG) Phencyclidine Screen (NEG) Amphetamines Screen (NEG) U Methamphetamines Scrn (NEG) Benzodiazepines Screen (NEG) Cocaine Screen (NEG) U Marijuana (THC) Screen (NEG) 06/08/17 06/08/17 06/08/17 Range/Units 02:15 05:30 05:30 WBC (4.8-10.8) 10^3/uL RBC (4.70-6.10) 10^6/uL Hgb (14.0-18.0) g/dL Hct (42.0-52.0) % MCV (80-90) FL MCH (27-31) PG MCHC (33-37) g/dL RDW Std Deviation (39-50) fL RDW Coeff of Joel (11.5-14.5) % Plt Count (140-350) 10*3/uL MPV (7.4-12.2) FL Immature Gran % (Auto) (0-5) % Neut % (Auto) (50-80) % Lymph % (Auto) (10-50) % [place] % (Auto) (5-15) % Eos % (Auto) (0-8) % Baso % (Auto) (0-1) % Immature Gran # (Auto) 10*3/UL Neut # (Auto) 10*3/UL Lymph # (Auto) 10*3/uL [place] # (Auto) (0.3-0.8) 10*3/UL Eos # (Auto) 10*3/UL Baso # (Auto) 10*3/UL WBC Morphology Comment (NORM) Plt Morphology Comment (NORM) RBC Morph Comment (NORM) PT (9.7-11.4) secs INR (0.00-5.90) N/A D-Dimer 0.29 (0.00-0.59) mg/L Sodium 145 (135-145) meq/L Potassium 5.0 (3.8-5.2) meq/L Chloride 112 (98-112) meq/L Carbon Dioxide 20 L (23-33) meq/L Anion Gap 13 (5-20) BUN 18 (7-22) mg/dL Creatinine 0.7 (0.70-1.50) mg/dL Estimated GFR > 60 (>60 ml/min/1.73m(2)) BUN/Creatinine Ratio 25.71 H (6-20) Glucose 201 H (78-110) mg/dL Mean Blood Glucose mg/dL Hemoglobin A1c (4.2-6.0) % Calculated Osmolality 307.0 H (267-292) mOsm/kg Calcium 10.0 (8.7-10.7) mg/dL Magnesium (1.6-2.4) mg/dL Total Bilirubin 0.2 L (0.3-1.2) mg/dL AST 49 (21-57) IU/L ALT 64 (21-72) IU/L Alkaline Phosphatase 75 (38-126) IU/L CK-MB (CK-2) (0.00-5.00) NG/ML Troponin I < 0.012 (< 0.040) ng/mL C-Reactive Protein (0.0-0.9) mg/dL NT-Pro-B Natriuret Pep (0-125) PG/ML Total Protein 7.4 (6.1-8.0) g/dL Albumin 4.1 (3.5-4.8) g/dL Globulin 3.3 (2.50-4.10) g/dL Albumin/Globulin Ratio 1.20 L (1.3-2.0) mg/g Triglycerides 173 (44-200) mg/dL Cholesterol 156 (120-200) mg/dL LDL Cholesterol, Calc 84.400 mg/dL VLDL Cholesterol 34 (0-40) mg/dL HDL Cholesterol 37 L (40-150) mg/dL Cholesterol/HDL Ratio 4.21 H (0-4.0) RATIO TSH (0.2700-4.2000) uIU/mL Ur Collection Type U Specif Grav (Refrac) Urine Opiates Screen (NEG) Ur Buprenorphine (NEG) Ur Oxycodone Screen (NEG) Urine Methadone Screen (NEG) Ur Propoxyphene Screen (NEG) Barbiturate Screen (NEG) U Tricyclic Antidepress (NEG) Phencyclidine Screen (NEG) Amphetamines Screen (NEG) U Methamphetamines Scrn (NEG) Benzodiazepines Screen (NEG) Cocaine Screen (NEG) U Marijuana (THC) Screen (NEG) 06/08/17 06/08/17 Range/Units 05:30 10:09 WBC (4.8-10.8) 10^3/uL RBC (4.70-6.10) 10^6/uL Hgb (14.0-18.0) g/dL Hct (42.0-52.0) % MCV (80-90) FL MCH (27-31) PG MCHC (33-37) g/dL RDW Std Deviation (39-50) fL RDW Coeff of Joel (11.5-14.5) % Plt Count (140-350) 10*3/uL MPV (7.4-12.2) FL Immature Gran % (Auto) (0-5) % Neut % (Auto) (50-80) % Lymph % (Auto) (10-50) % [place] % (Auto) (5-15) % Eos % (Auto) (0-8) % Baso % (Auto) (0-1) % Immature Gran # (Auto) 10*3/UL Neut # (Auto) 10*3/UL Lymph # (Auto) 10*3/uL [place] # (Auto) (0.3-0.8) 10*3/UL Eos # (Auto) 10*3/UL Baso # (Auto) 10*3/UL WBC Morphology Comment (NORM) Plt Morphology Comment (NORM) RBC Morph Comment (NORM) PT (9.7-11.4) secs INR (0.00-5.90) N/A D-Dimer (0.00-0.59) mg/L Sodium (135-145) meq/L Potassium (3.8-5.2) meq/L Chloride (98-112) meq/L Carbon Dioxide (23-33) meq/L Anion Gap (5-20) BUN (7-22) mg/dL Creatinine (0.70-1.50) mg/dL Estimated GFR (>60 ml/min/1.73m(2)) BUN/Creatinine Ratio (6-20) Glucose (78-110) mg/dL Mean Blood Glucose 105.475 mg/dL Hemoglobin A1c 5.75 (4.2-6.0) % Calculated Osmolality (267-292) mOsm/kg Calcium (8.7-10.7) mg/dL Magnesium (1.6-2.4) mg/dL Total Bilirubin (0.3-1.2) mg/dL AST (21-57) IU/L ALT (21-72) IU/L Alkaline Phosphatase (38-126) IU/L CK-MB (CK-2) (0.00-5.00) NG/ML Troponin I (< 0.040) ng/mL C-Reactive Protein (0.0-0.9) mg/dL NT-Pro-B Natriuret Pep (0-125) PG/ML Total Protein (6.1-8.0) g/dL Albumin (3.5-4.8) g/dL Globulin (2.50-4.10) g/dL Albumin/Globulin Ratio (1.3-2.0) mg/g Triglycerides (44-200) mg/dL Cholesterol (120-200) mg/dL LDL Cholesterol, Calc mg/dL VLDL Cholesterol (0-40) mg/dL HDL Cholesterol (40-150) mg/dL Cholesterol/HDL Ratio (0-4.0) RATIO TSH (0.2700-4.2000) uIU/mL Ur Collection Type Clean catch urine U Specif Grav (Refrac) 1.027 Urine Opiates Screen Negative (NEG) Ur Buprenorphine Negative (NEG) Ur Oxycodone Screen Positive H (NEG) Urine Methadone Screen Negative (NEG) Ur Propoxyphene Screen Negative (NEG) Barbiturate Screen Negative (NEG) U Tricyclic Antidepress Negative (NEG) Phencyclidine Screen Negative (NEG) Amphetamines Screen Negative (NEG) U Methamphetamines Scrn Negative (NEG) Benzodiazepines Screen Positive H (NEG) Cocaine Screen Negative (NEG) U Marijuana (THC) Screen Negative (NEG) - EKG Data -: EKG Interpreted by Me Rate: Normal EKG Shows Normal: Sinus Rhythm - Imaging Status: Image Reviewed by Me (The chest x-ray, on my view appears negative for acute cardiopulmonary disease. The CT scan did not show any evidence of pneumonia. Radiologist felt that there were some nodules in the upper lung lobes. They were about 5 mm or less in size.) Assessment and Plan - Patient Problems (1) Chest pain Current Visit: Yes Status: Acute Code(s): R07.9 - Chest pain, unspecified (2) Tobacco abuse Current Visit: Yes Status: Acute Code(s): Z72.0 - Tobacco use (3) Chronic pain Current Visit: Yes Status: Chronic Code(s): G89.29 - Other chronic pain Qualifiers: Chronic pain type: chronic pain syndrome Qualified Code(s): G89.4 - Chronic pain syndrome (4) Hypertension Current Visit: Yes Status: Acute Code(s): I10 - Essential (primary) hypertension Qualifiers: Hypertension type: essential hypertension Qualified Code(s): I10 - Essential (primary) hypertension (5) Lung nodule < 6cm on CT Current Visit: Yes Status: Acute Code(s): R91.1 - Solitary pulmonary nodule - Assessment / Plan Additional Assessment/Plan Details: The recommendation of the patient would've been to proceed with an exercise treadmill stress test. When I went to confirm the second time that this would be okay with the patient, he became very belligerent with his language, stating "I fucking already said that I proceed with the test wire we going over this again?" He stated to me that he would rather go home and ultimately that is the plan that we felt would be best. His asked about reviewing the CT scan, but at 5 mm, I cannot even see the nodules so it's impossible for me to point out the on the imaging to her and I discussed that with her and the patient. I recommended repeat CT scan in one year, but ultimately I discussed quitting smoking as being the primary treatment for this. I also did make note of the elevated white blood cell count and elevated CRP, and this could certainly be inflammatory, but there is no evidence of bacterial pneumonia that would require antibiotics for therapy. Could be viral in etiology. They could be reactive to smoking as well. I wrote a prescription for a CT scan to be repeated, noncontrast, and May 2018. I also warned him that recurrent and repeat CT scans could cumulatively cause cancer in and of themselves, but that the current recommendations would recommend CT scans based on his smoking history and presence of nodules. In terms of his risk of heart disease or heart attack, I still think it's fairly low given his age, but with his family history, his tobacco abuse, and hypertension, I wrote a prescription for an exercise treadmill stress test told him to discuss it with his provider and do it on an outpatient basis at a minimum. I discussed whether or not this could be heartburn, but he had no interest in doing a proton pump inhibitor trial. We did do a hemoglobin A1c, the patient does not have diabetes. Off as gallbladder disease can also mimic chest pains, I recommended consideration for a gallbladder ultrasound, and I also recommended that it could require further workup. Given this discussion, the fact that I certainly don't believe that we need to deal with belligerent behavior and patient's cursing us, and my suspicion overall being low for coronary artery disease, I think this workup can be safely done as an outpatient. The patient made very clear that he would prefer to just do this on a different day, and that he would prefer to discuss this with with his provider. As I feel like there is no other way that we can accommodate this patient's request other than the discharge him and have him follow with his primary provider, that is the plan we will go with. Given his belligerence and cursing behavior and his anxiousness and agitation, I'm also worried that this could escalate further as it was cleared during the visit with the patient that he was not calming down her de-escalating in terms of his behavior.
--- NOTE | 2017-06-08 12:24 | DCSUMMARY ---
Hospitalization Summary Admit Date: 06/08/2017 Discharge Date: 06/08/17 Primary Diagnosis:: chest pain, atypical Hospital Course: This is a 37-year-old male who came in earlier on a same-day admission and discharge. Please see his history and physical exam from earlier today for further details of plan. Assessment and Plan: 1. As per discharge assessments noted 2. Disposition: Patient is discharged home. 3. Condition on discharge, stable and improved. No evidence of acute myocardial infarction or pulmonary emboli. 4. Diet: regular diet 5. Activities: I recommended the patient quit smoking 6. Follow-Up: 1. Primary care provider as soon as possible in [place]. 2. 7. Medications at the Time of Discharge: Home Medications Medication Instructions Recorded Confirmed Type Ibuprofen [Advil Migraine] 200 mg PO PRN #30 04/14/12 06/07/17 History JPM - Lisinopril Tab 10 mg PO DAILY tab 07/04/14 06/07/17 History Meloxicam 1 - 2 tab PO DAILY PRN #60 tab 02/20/15 06/07/17 History oxyCODONE IR Tab [OxyIR Tab] 15 mg PO Q4H PRN 06/07/17 06/07/17 History 8. Time, care, counseling and coordination of care for this discharge is greater than 30 minutes. Exam - Vitals Vital Signs: Vital Signs Temperature 97.6 F Temperature Source Temporal Artery Scan Pulse Rate [Telemetry] 84 Pulse Rate [Pulse Oximeter] 99 Pulse Rate 102 Respiratory Rate 18 Blood Pressure [Right Arm] 166/79 Blood Pressure 153/92 Pulse Ox 94 Oxygen Delivery Method Room Air Height 6 ft 2 in Weight 300 lb Data Peritnent Studies: Laboratory Results 06/07/17 06/07/17 06/07/17 Range/Units 20:10 20:10 20:10 WBC 18.19 H (4.8-10.8) 10^3/uL RBC 5.64 (4.70-6.10) 10^6/uL Hgb 16.4 (14.0-18.0) g/dL Hct 48.1 (42.0-52.0) % MCV 85.3 (80-90) FL MCH 29.1 (27-31) PG MCHC 34.1 (33-37) g/dL RDW Std Deviation 42.5 (39-50) fL RDW Coeff of Joel 13.8 (11.5-14.5) % Plt Count 285 (140-350) 10*3/uL MPV 10.5 (7.4-12.2) FL Immature Gran % (Auto) 0.3 (0-5) % Neut % (Auto) 62.3 (50-80) % Lymph % (Auto) 26.3 (10-50) % Gregg % (Auto) 7.8 (5-15) % Eos % (Auto) 2.9 (0-8) % Baso % (Auto) 0.4 (0-1) % Immature Gran # (Auto) 0.06 10*3/UL Neut # (Auto) 11.35 10*3/UL Lymph # (Auto) 4.78 10*3/uL Gregg # (Auto) 1.41 H (0.3-0.8) 10*3/UL Eos # (Auto) 0.52 10*3/UL Baso # (Auto) 0.07 10*3/UL WBC Morphology Comment Normal morphology (NORM) Plt Morphology Comment Normal morphology (NORM) RBC Morph Comment Normal morphology (NORM) PT (9.7-11.4) secs INR (0.00-5.90) N/A D-Dimer (0.00-0.59) mg/L Sodium 146 H (135-145) meq/L Potassium 4.4 (3.8-5.2) meq/L Chloride 107 (98-112) meq/L Carbon Dioxide 25 (23-33) meq/L Anion Gap 14 (5-20) BUN 15 (7-22) mg/dL Creatinine 0.7 (0.70-1.50) mg/dL Estimated GFR > 60 (>60 ml/min/1.73m(2)) BUN/Creatinine Ratio 21.42 H (6-20) Glucose 90 (78-110) mg/dL Mean Blood Glucose mg/dL Hemoglobin A1c (4.2-6.0) % Calculated Osmolality 302.0 H (267-292) mOsm/kg Calcium 9.6 (8.7-10.7) mg/dL Magnesium 1.9 (1.6-2.4) mg/dL Total Bilirubin 0.4 (0.3-1.2) mg/dL AST 41 (21-57) IU/L ALT 76 H (21-72) IU/L Alkaline Phosphatase 71 (38-126) IU/L CK-MB (CK-2) 0.26 (0.00-5.00) NG/ML Troponin I < 0.012 (< 0.040) ng/mL C-Reactive Protein 1.8 H (0.0-0.9) mg/dL NT-Pro-B Natriuret Pep 11.1 (0-125) PG/ML Total Protein 8.1 H (6.1-8.0) g/dL Albumin 4.5 (3.5-4.8) g/dL Globulin 3.6 (2.50-4.10) g/dL Albumin/Globulin Ratio 1.20 L (1.3-2.0) mg/g Triglycerides (44-200) mg/dL Cholesterol (120-200) mg/dL LDL Cholesterol, Calc mg/dL VLDL Cholesterol (0-40) mg/dL HDL Cholesterol (40-150) mg/dL Cholesterol/HDL Ratio (0-4.0) RATIO TSH (0.2700-4.2000) uIU/mL Ur Collection Type U Specif Grav (Refrac) Urine Opiates Screen (NEG) Ur Buprenorphine (NEG) Ur Oxycodone Screen (NEG) Urine Methadone Screen (NEG) Ur Propoxyphene Screen (NEG) Barbiturate Screen (NEG) U Tricyclic Antidepress (NEG) Phencyclidine Screen (NEG) Amphetamines Screen (NEG) U Methamphetamines Scrn (NEG) Benzodiazepines Screen (NEG) Cocaine Screen (NEG) U Marijuana (THC) Screen (NEG) 06/07/17 06/07/17 06/07/17 Range/Units 20:10 20:10 20:16 WBC (4.8-10.8) 10^3/uL RBC (4.70-6.10) 10^6/uL Hgb (14.0-18.0) g/dL Hct (42.0-52.0) % MCV (80-90) FL MCH (27-31) PG MCHC (33-37) g/dL RDW Std Deviation (39-50) fL RDW Coeff of Joel (11.5-14.5) % Plt Count (140-350) 10*3/uL MPV (7.4-12.2) FL Immature Gran % (Auto) (0-5) % Neut % (Auto) (50-80) % Lymph % (Auto) (10-50) % Gregg % (Auto) (5-15) % Eos % (Auto) (0-8) % Baso % (Auto) (0-1) % Immature Gran # (Auto) 10*3/UL Neut # (Auto) 10*3/UL Lymph # (Auto) 10*3/uL Gregg # (Auto) (0.3-0.8) 10*3/UL Eos # (Auto) 10*3/UL Baso # (Auto) 10*3/UL WBC Morphology Comment (NORM) Plt Morphology Comment (NORM) RBC Morph Comment (NORM) PT 10.0 (9.7-11.4) secs INR 0.94 (0.00-5.90) N/A D-Dimer 0.33 (0.00-0.59) mg/L Sodium (135-145) meq/L Potassium (3.8-5.2) meq/L Chloride (98-112) meq/L Carbon Dioxide (23-33) meq/L Anion Gap (5-20) BUN (7-22) mg/dL Creatinine (0.70-1.50) mg/dL Estimated GFR (>60 ml/min/1.73m(2)) BUN/Creatinine Ratio (6-20) Glucose (78-110) mg/dL Mean Blood Glucose mg/dL Hemoglobin A1c (4.2-6.0) % Calculated Osmolality (267-292) mOsm/kg Calcium (8.7-10.7) mg/dL Magnesium (1.6-2.4) mg/dL Total Bilirubin (0.3-1.2) mg/dL AST (21-57) IU/L ALT (21-72) IU/L Alkaline Phosphatase (38-126) IU/L CK-MB (CK-2) (0.00-5.00) NG/ML Troponin I (< 0.040) ng/mL C-Reactive Protein (0.0-0.9) mg/dL NT-Pro-B Natriuret Pep (0-125) PG/ML Total Protein (6.1-8.0) g/dL Albumin (3.5-4.8) g/dL Globulin (2.50-4.10) g/dL Albumin/Globulin Ratio (1.3-2.0) mg/g Triglycerides (44-200) mg/dL Cholesterol (120-200) mg/dL LDL Cholesterol, Calc mg/dL VLDL Cholesterol (0-40) mg/dL HDL Cholesterol (40-150) mg/dL Cholesterol/HDL Ratio (0-4.0) RATIO TSH 2.29 (0.2700-4.2000) uIU/mL Ur Collection Type U Specif Grav (Refrac) Urine Opiates Screen (NEG) Ur Buprenorphine (NEG) Ur Oxycodone Screen (NEG) Urine Methadone Screen (NEG) Ur Propoxyphene Screen (NEG) Barbiturate Screen (NEG) U Tricyclic Antidepress (NEG) Phencyclidine Screen (NEG) Amphetamines Screen (NEG) U Methamphetamines Scrn (NEG) Benzodiazepines Screen (NEG) Cocaine Screen (NEG) U Marijuana (THC) Screen (NEG) 06/08/17 06/08/17 06/08/17 Range/Units 02:15 05:30 05:30 WBC (4.8-10.8) 10^3/uL RBC (4.70-6.10) 10^6/uL Hgb (14.0-18.0) g/dL Hct (42.0-52.0) % MCV (80-90) FL MCH (27-31) PG MCHC (33-37) g/dL RDW Std Deviation (39-50) fL RDW Coeff of Joel (11.5-14.5) % Plt Count (140-350) 10*3/uL MPV (7.4-12.2) FL Immature Gran % (Auto) (0-5) % Neut % (Auto) (50-80) % Lymph % (Auto) (10-50) % Gregg % (Auto) (5-15) % Eos % (Auto) (0-8) % Baso % (Auto) (0-1) % Immature Gran # (Auto) 10*3/UL Neut # (Auto) 10*3/UL Lymph # (Auto) 10*3/uL Gregg # (Auto) (0.3-0.8) 10*3/UL Eos # (Auto) 10*3/UL Baso # (Auto) 10*3/UL WBC Morphology Comment (NORM) Plt Morphology Comment (NORM) RBC Morph Comment (NORM) PT (9.7-11.4) secs INR (0.00-5.90) N/A D-Dimer 0.29 (0.00-0.59) mg/L Sodium 145 (135-145) meq/L Potassium 5.0 (3.8-5.2) meq/L Chloride 112 (98-112) meq/L Carbon Dioxide 20 L (23-33) meq/L Anion Gap 13 (5-20) BUN 18 (7-22) mg/dL Creatinine 0.7 (0.70-1.50) mg/dL Estimated GFR > 60 (>60 ml/min/1.73m(2)) BUN/Creatinine Ratio 25.71 H (6-20) Glucose 201 H (78-110) mg/dL Mean Blood Glucose mg/dL Hemoglobin A1c (4.2-6.0) % Calculated Osmolality 307.0 H (267-292) mOsm/kg Calcium 10.0 (8.7-10.7) mg/dL Magnesium (1.6-2.4) mg/dL Total Bilirubin 0.2 L (0.3-1.2) mg/dL AST 49 (21-57) IU/L ALT 64 (21-72) IU/L Alkaline Phosphatase 75 (38-126) IU/L CK-MB (CK-2) (0.00-5.00) NG/ML Troponin I < 0.012 (< 0.040) ng/mL C-Reactive Protein (0.0-0.9) mg/dL NT-Pro-B Natriuret Pep (0-125) PG/ML Total Protein 7.4 (6.1-8.0) g/dL Albumin 4.1 (3.5-4.8) g/dL Globulin 3.3 (2.50-4.10) g/dL Albumin/Globulin Ratio 1.20 L (1.3-2.0) mg/g Triglycerides 173 (44-200) mg/dL Cholesterol 156 (120-200) mg/dL LDL Cholesterol, Calc 84.400 mg/dL VLDL Cholesterol 34 (0-40) mg/dL HDL Cholesterol 37 L (40-150) mg/dL Cholesterol/HDL Ratio 4.21 H (0-4.0) RATIO TSH (0.2700-4.2000) uIU/mL Ur Collection Type U Specif Grav (Refrac) Urine Opiates Screen (NEG) Ur Buprenorphine (NEG) Ur Oxycodone Screen (NEG) Urine Methadone Screen (NEG) Ur Propoxyphene Screen (NEG) Barbiturate Screen (NEG) U Tricyclic Antidepress (NEG) Phencyclidine Screen (NEG) Amphetamines Screen (NEG) U Methamphetamines Scrn (NEG) Benzodiazepines Screen (NEG) Cocaine Screen (NEG) U Marijuana (THC) Screen (NEG) 06/08/17 06/08/17 Range/Units 05:30 10:09 WBC (4.8-10.8) 10^3/uL RBC (4.70-6.10) 10^6/uL Hgb (14.0-18.0) g/dL Hct (42.0-52.0) % MCV (80-90) FL MCH (27-31) PG MCHC (33-37) g/dL RDW Std Deviation (39-50) fL RDW Coeff of Joel (11.5-14.5) % Plt Count (140-350) 10*3/uL MPV (7.4-12.2) FL Immature Gran % (Auto) (0-5) % Neut % (Auto) (50-80) % Lymph % (Auto) (10-50) % Gregg % (Auto) (5-15) % Eos % (Auto) (0-8) % Baso % (Auto) (0-1) % Immature Gran # (Auto) 10*3/UL Neut # (Auto) 10*3/UL Lymph # (Auto) 10*3/uL Gregg # (Auto) (0.3-0.8) 10*3/UL Eos # (Auto) 10*3/UL Baso # (Auto) 10*3/UL WBC Morphology Comment (NORM) Plt Morphology Comment (NORM) RBC Morph Comment (NORM) PT (9.7-11.4) secs INR (0.00-5.90) N/A D-Dimer (0.00-0.59) mg/L Sodium (135-145) meq/L Potassium (3.8-5.2) meq/L Chloride (98-112) meq/L Carbon Dioxide (23-33) meq/L Anion Gap (5-20) BUN (7-22) mg/dL Creatinine (0.70-1.50) mg/dL Estimated GFR (>60 ml/min/1.73m(2)) BUN/Creatinine Ratio (6-20) Glucose (78-110) mg/dL Mean Blood Glucose 105.475 mg/dL Hemoglobin A1c 5.75 (4.2-6.0) % Calculated Osmolality (267-292) mOsm/kg Calcium (8.7-10.7) mg/dL Magnesium (1.6-2.4) mg/dL Total Bilirubin (0.3-1.2) mg/dL AST (21-57) IU/L ALT (21-72) IU/L Alkaline Phosphatase (38-126) IU/L CK-MB (CK-2) (0.00-5.00) NG/ML Troponin I (< 0.040) ng/mL C-Reactive Protein (0.0-0.9) mg/dL NT-Pro-B Natriuret Pep (0-125) PG/ML Total Protein (6.1-8.0) g/dL Albumin (3.5-4.8) g/dL Globulin (2.50-4.10) g/dL Albumin/Globulin Ratio (1.3-2.0) mg/g Triglycerides (44-200) mg/dL Cholesterol (120-200) mg/dL LDL Cholesterol, Calc mg/dL VLDL Cholesterol (0-40) mg/dL HDL Cholesterol (40-150) mg/dL Cholesterol/HDL Ratio (0-4.0) RATIO TSH (0.2700-4.2000) uIU/mL Ur Collection Type Clean catch urine U Specif Grav (Refrac) 1.027 Urine Opiates Screen Negative (NEG) Ur Buprenorphine Negative (NEG) Ur Oxycodone Screen Positive H (NEG) Urine Methadone Screen Negative (NEG) Ur Propoxyphene Screen Negative (NEG) Barbiturate Screen Negative (NEG) U Tricyclic Antidepress Negative (NEG) Phencyclidine Screen Negative (NEG) Amphetamines Screen Negative (NEG) U Methamphetamines Scrn Negative (NEG) Benzodiazepines Screen Positive H (NEG) Cocaine Screen Negative (NEG) U Marijuana (THC) Screen Negative (NEG) [address] [facility] [place] [address] PH: DD: [phone] FAX: [phone] ~DIAGNOSTIC IMAGING REPORT~ Patient: Fermin Oropeza : 1980 Sex: M Age: 37 Exam Name: CT CTA Chest Non-Coronary [facility] Exam Date: 06/07/17 Report # : [id number] CPT Code: 77721 EMR/MR #: [id number] Ordering: Gustabo Sanon Admiting: Primary: NOT IN TABLE Attending: Signed EXAM: CT Angiography Chest Without and With Intravenous Contrast CLINICAL HISTORY: Chest pain TECHNIQUE: Axial computed tomographic angiography images of the chest without and with intravenous contrast using pulmonary embolism protocol. MIP reconstructed images were created and reviewed. Coronal and sagittal reformatted images were created and reviewed. COMPARISON: No relevant prior studies available. FINDINGS: Pulmonary arteries: Exam is limited due to suboptimal pulmonary arterial contrast at time of imaging. No evidence for central or occlusive pulmonary embolus. Multiple foci of hypodensity within the segmental and subsegmental pulmonary trunk branches likely related to artifact. Aorta: No acute findings regarding the thoracic aorta. No thoracic aortic aneurysm. Lungs: 5 mm subpleural right upper lobe lung nodule. Calcified granuloma within the left upper lobe. 3 mm opacity within the left upper lobe on image 39. Small foci of subpleural scarring and atelectasis noted bilaterally. No evidence for consolidation. No visualized effusion. Azygos lobe incidentally noted. Pleural space: Unremarkable. No significant effusion. No pneumothorax. Heart: Unremarkable. No cardiomegaly. No significant pericardial effusion. No evidence of RV dysfunction. Bones/joints: No acute fracture. No dislocation. Mild degenerative disc changes. Soft tissues: Unremarkable. Lymph nodes: Unremarkable. No enlarged lymph nodes. Liver: Hepatic steatosis. IMPRESSION: 1. No evidence for central or occlusive pulmonary embolus. Limited contrast bolus and artifact limits evaluation of the segmental and subsegmental branches. 2. Calcified granuloma in the left upper lobe. Noncalcified small nodularities in the right upper lobe and left upper lobe may also be related to inflammation or scarring though nonspecific. If there is risk for malignancy, consider twelve-month follow-up imaging. 3. Hepatic steatosis. Dictated By: Jaime Taylor MD. Signed By: 06/07/17 2323 Jaime Taylor MD. Patient Problems - Patient Problem List (1) Chest pain Current Visit: Yes Status: Acute Code(s): R07.9 - Chest pain, unspecified Category: Medical (2) Tobacco abuse Current Visit: Yes Status: Acute Code(s): Z72.0 - Tobacco use Category: Medical (3) Chronic pain Current Visit: Yes Status: Chronic Code(s): G89.29 - Other chronic pain Qualifiers: Chronic pain type: chronic pain syndrome Qualified Code(s): G89.4 - Chronic pain syndrome Category: Medical (4) Hypertension Current Visit: Yes Status: Acute Code(s): I10 - Essential (primary) hypertension Qualifiers: Hypertension type: essential hypertension Qualified Code(s): I10 - Essential (primary) hypertension Category: Medical (5) Lung nodule < 6cm on CT Current Visit: Yes Status: Acute Code(s): R91.1 - Solitary pulmonary nodule Category: Medical
== END 2017-06-08 12:05 | disposition home or self-care (01) | DRG 313 ==
LOC: ER 20:10 → MED/SURG 23:13
PROVIDERS: ADMIT Internal Medicine; ATTEND Internal Medicine